=== PATIENT | male | born 1950 | race Caucasian/White ===

== ENCOUNTER 2022-07-21 11:18 | Emergency (ER) | payer BC, MEDICAID ==
[~2022-07-21] VITALS: Ht 170.2 cm; Wt 45.4 kg
[~2022-07-21 11:18] MED LIST: LORAZAPAM
[2022-07-21 11:36] VITALS: BP 137/78
--- NOTE | 2022-07-21 11:46 | NUR ---
PATIENT AMBULATED TO BED 6.
--- NOTE | 2022-07-21 12:15 | NUR ---
Patient being evaluated by physician at bedside.
[2022-07-21] MEDS ORDERED: FAMOTIDINE 20 MG/2 ML VIAL IVP ONE (12:25)
[2022-07-21] MEDS ORDERED: NACL 0.9% 1,000 ML IV SCH (12:25)
[2022-07-21] MEDS ORDERED: ONDANSETRON 4 MG/2 ML VIAL IVP ONE (12:25)
[2022-07-21] MEDS ORDERED: ALUMINUM HYD/MAG/SIMETHICONE 30 ML UDC PO ONE (12:25)
[2022-07-21 12:59] LABS: BASOPHILS % (AUTO) 0.4 % (0.0-2.0); HEMATOCRIT 38.6 % (36-52); HEMOGLOBIN 13.1 g/dL (12.0-18.0); LYMPHOCYTES # (AUTO) 0.9 K/uL (2.0-11.5); LYMPHOCYTES % (AUTO) 10.9 % (20.5-51.1); MEAN CORPUSCULAR HEMOGLOBIN 32 pg (27-31); MEAN CORPUSCULAR HGB CONC 34 g/dL (33-37); MEAN CORPUSCULAR VOLUME 94.7 fL (80-94); MONOCYTES # (AUTO) 0.3 K/uL (0.8-1.0); MONOCYTES % (AUTO) 3.1 % (1.7-9.3); NEUTROPHILS # (AUTO) 7.1 K/uL (1.8-7.7); NEUTROPHILS % (AUTO) 85.6 % (42.2-75.2); PLATELET COUNT (AUTO) 320 K/uL (140-450); RED BLOOD CELL COUNT(AUTO) 4.07 MIL/uL (4.20-6.10); RED CELL DISTRIBUTION WIDTH 13.6 % (11.6-13.7); WHITE BLOOD COUNT (AUTO) 8.3 K/uL (4.8-10.8)
[2022-07-21 13:12] LABS: ALBUMIN 4.4 g/dL (3.4-5.0); ANION GAP 13.5 (8-16); ASPARTATE AMINOTRANSFERASE 21 U/L (15-37); CHLORIDE 98 mmol/L (98-107); CREATININE 1.1 mg/dL (0.6-1.3); GLUCOSE 111 mg/dL (74-106); LIPASE 78 U/L (73-393); POTASSIUM 4.5 mmol/L (3.5-5.1); SODIUM SERUM 135 mmol/L (136-145); TOTAL BILIRUBIN 0.5 mg/dL (0.0-1.0); UREA NITROGEN, BLOOD 25 mg/dL (7-18)
[2022-07-21 13:48] LABS: APPEARANCE,URINE CLEAR (CLEAR); BILIRUBIN,URINE NEGATIVE (NEGATIVE); BLOOD, URINE TRACE-I (NEGATIVE); COLOR,URINE YELLOW (YELLOW); LEUKOCYTE ESTERASE ,URINE NEGATIVE (NEGATIVE); NITRITE, URINE NEGATIVE (NEGATIVE); UGLUCOSE NEGATIVE (NEGATIVE)
[2022-07-21 15:46] VITALS: BP 132/80
[2022-07-21] MEDS ORDERED: OMEP40EC23 PO (15:48)
[2022-07-21] MEDS ORDERED: ALUM355S59 PO (15:48)
[2022-07-21] MEDS ORDERED: ONDA-188 SL (15:48)
[2022-07-21] MEDS ORDERED: ACET-6951 PO (17:33)
== END 2022-07-21 16:22 | disposition home or self-care (01) ==
LOC: MED 11:18
DX: R10.9 Unspecified abdominal pain (principal)
CPT/HCPCS: 36415; 74177; 80053; 81003; 83690; 85025; 96374; 96375; 99285; J2405; J3490; Q9967

== ENCOUNTER 2023-01-23 09:40 | Emergency (ER) | payer BC, OTHER ==
[~2023-01-23] VITALS: Ht 170.2 cm; Wt 40.8 kg
[~2023-01-23 09:40] MED LIST changes: +ACET-6951 PO; +ALUM355S59 PO; +OMEP40EC23 PO; +ONDA-188 SL
[2023-01-23 09:47] VITALS: BP 149/84; PULSE 84; RESP 18; TEMP 97; O2SAT 100
[2023-01-23] MEDS ORDERED: ALUMINUM HYD/MAG/SIMETHICONE 30 ML UDC PO ONE (10:30)
[2023-01-23] MEDS ORDERED: ONDANSETRON 4 MG ODT PO ONE (10:30)
[2023-01-23] MEDS ORDERED: FAMOTIDINE 20 MG TAB PO ONE (10:30)
--- NOTE | 2023-01-23 10:40 | NUR ---
Blood for labwork drawn from [facility]. Patient tolerated WELL.
--- NOTE | 2023-01-23 10:44 | NUR ---
72 Y/O MALE BIB SELF, PATIENT PRESENTS TO ED WITH ABDOMINAL PAIN, NAUSEA, LOSS OF APPETITE, BLOATING AND DIARRHEA. PT STATES HE CURRENTLY FEELS CONSTIPATED NOW. STATES HE HAD AN EDG DONE 12/26/22 AND HAS F/U WITH GI SPECIALIST TOMORROW. DENIES N/V/D; SKIN IS PINK/WARM/DRY; AAOX4 WITH EVEN AND STEADY GAIT; LUNGS CLEAR BL; HR EVEN AND REGULAR; PT DENIES ANY FEVER, CP, SOB, OR COUGH AT THIS TIME; PATIENT STATES PAIN OF 8/10 AT THIS TIME; VSS; PATIENT POSITIONED FOR COMFORT; HOB ELEVATED; BEDRAILS UP X2; BED DOWN. ER MD MADE AWARE OF PT STATUS. CALL LIGHT WITHIN REACH. PMH: HTN NKA MED: OMEPRAZOLE, METOCLOPRAMIDE (NO RELIEF)
[2023-01-23 10:47] VITALS: O2SAT 100
[2023-01-23 10:48] LABS: BASOPHILS % (AUTO) 0.8 % (0.0-2.0); EOSINOPHILS # (AUTO) 0.2 K/uL (0-0.4); EOSINOPHILS % (AUTO) 3.5 % (0.0-4.0); HEMATOCRIT 32.5 % (36-52); LYMPHOCYTES # (AUTO) 1.3 K/uL (2.0-11.5); LYMPHOCYTES % (AUTO) 26.7 % (20.5-51.1); MEAN CORPUSCULAR HEMOGLOBIN 32 pg (27-31); MEAN CORPUSCULAR HGB CONC 34 g/dL (33-37); MEAN CORPUSCULAR VOLUME 93.8 fL (80-94); MONOCYTES # (AUTO) 0.5 K/uL (0.8-1.0); MONOCYTES % (AUTO) 11.1 % (1.7-9.3); NEUTROPHILS # (AUTO) 2.8 K/uL (1.8-7.7); NEUTROPHILS % (AUTO) 57.9 % (42.2-75.2); PLATELET COUNT (AUTO) 301 K/uL (140-450); RED BLOOD CELL COUNT(AUTO) 3.47 MIL/uL (4.20-6.10); RED CELL DISTRIBUTION WIDTH 13.8 % (11.6-13.7); WHITE BLOOD COUNT (AUTO) 4.9 K/uL (4.8-10.8)
--- NOTE | 2023-01-23 10:49 | NUR ---
PT AMBULATED TO BATHROOM AT THIS TIME
[2023-01-23 11:16] LABS: ALBUMIN 3.6 g/dL (3.4-5.0); ANION GAP 10.6 (8-16); ASPARTATE AMINOTRANSFERASE 27 U/L (15-37); CARBON DIOXIDE 28.3 mmol/L (21-32); CHLORIDE 104 mmol/L (98-107); CREATININE 0.7 mg/dL (0.6-1.3); GLUCOSE 101 mg/dL (74-106); LIPASE 56 U/L (73-393); POTASSIUM 3.9 mmol/L (3.5-5.1); SODIUM SERUM 139 mmol/L (136-145); TOTAL BILIRUBIN 0.6 mg/dL (0.0-1.0); UREA NITROGEN, BLOOD 9 mg/dL (7-18)
[2023-01-23] MEDS ORDERED: ACET-8905 PO (11:39)
[2023-01-23] MEDS ORDERED: MAG-27 PO (11:39)
--- NOTE | 2023-01-23 11:47 | NUR ---
Patient discharged with v/s stable. Written and verbal after care instructions FOR SMOKING TOBACCO, GASTRITIS AND ABD PAIN given and explained. Patient alert, oriented and verbalized understanding of instructions. Ambulatory with steady gait. All questions addressed prior to discharge. ID band removed. Patient advised to follow up with PMD. Rx of HYDROCODONE AND MYLANTA given. Opportunity to ask questions provided and answered. COPY OF LABS PROVIDED
== END 2023-01-23 11:47 | disposition home or self-care (01) ==
LOC: MED 09:40
DX: K31.9 Disease of stomach and duodenum, unspecified (principal); K31.A0 Gastric intestinal metaplasia, unspecified; R10.13 Epigastric pain; I10 Essential (primary) hypertension; F17.210 Nicotine dependence, cigarettes, uncomplicated; Z79.899 Other long term (current) drug therapy
CPT/HCPCS: 36415; 80053; 83690; 85025; 99284; Q0162

== ENCOUNTER 2023-12-20 14:12 | Observation (INO) | payer BC, OTHER ==
[2023-12-20] VITALS (8 sets, daily range): BP systolic 140–159; BP diastolic 77–82; PULSE 67–95; RESP 14–18; TEMP 97.1–98.3; O2SAT 96–98
[~2023-12-20] VITALS: Ht 167.6 cm; Wt 45.4 kg
[~2023-12-20 14:12] MED LIST changes: +ACET-8905 PO; +MAG-27 PO
[2023-12-20 15:34] LABS: BASOPHILS % (AUTO) 0.3 % (0.0-2.0); EOSINOPHILS % (AUTO) 0.7 % (0.0-4.0); HEMATOCRIT 33.7 % (36-52); HEMOGLOBIN 11.2 g/dL (12.0-18.0); LYMPHOCYTES # (AUTO) 1.1 K/uL (2.0-11.5); LYMPHOCYTES % (AUTO) 19.1 % (20.5-51.1); MEAN CORPUSCULAR HEMOGLOBIN 31 pg (27-31); MEAN CORPUSCULAR HGB CONC 33 g/dL (33-37); MEAN CORPUSCULAR VOLUME 92.3 fL (80-94); MONOCYTES # (AUTO) 0.7 K/uL (0.8-1.0); MONOCYTES % (AUTO) 11.7 % (1.7-9.3); NEUTROPHILS # (AUTO) 3.9 K/uL (1.8-7.7); NEUTROPHILS % (AUTO) 68.2 % (42.2-75.2); PLATELET COUNT (AUTO) 334 K/uL (140-450); RED BLOOD CELL COUNT(AUTO) 3.65 MIL/uL (4.20-6.10); RED CELL DISTRIBUTION WIDTH 14.7 % (11.6-13.7); WHITE BLOOD COUNT (AUTO) 5.8 K/uL (4.8-10.8)
[2023-12-20 15:45] LABS: ANION GAP 11.2 (8-16); CALCIUM 9.7 mg/dL (8.5-10.1); CARBON DIOXIDE 28.8 mmol/L (21-32); CHLORIDE 100 mmol/L (98-107); CREATININE 0.8 mg/dL (0.6-1.3); GLUCOSE 121 mg/dL (74-106); SODIUM SERUM 136 mmol/L (136-145); UREA NITROGEN, BLOOD 15 mg/dL (7-18)
[2023-12-20 16:08] LABS: INR 1.05 (0.8-1.2); PARTIAL THROMBOPLASTIN TIME 28.9 secs (22-35.6)
[2023-12-20] MEDS ORDERED: MORPHINE SULFATE 4 MG/ML SYR IVP PRN (20:05)
[2023-12-20] MEDS ORDERED: KCL 20 MEQ IN 100 mL PREMIX 200 ML IV PRN (20:05)
[2023-12-20] MEDS ORDERED: ONDANSETRON 4 MG/2 ML VIAL IVP PRN (20:05)
[2023-12-20] MEDS ORDERED: POTASSIUM CHLORIDE 10 MEQ TABER PO PRN (20:05)
[2023-12-20] MEDS ORDERED: HYDROcodone/APAP 5/325 MG 1 TAB TAB PO PRN (20:05)
[2023-12-20] MEDS ORDERED: ACETAMINOPHEN 325 MG TAB PO PRN (20:05)
[2023-12-20] MEDS ORDERED: MIRT7.5T14 PO (21:00)
[2023-12-20] MEDS ORDERED: CIPR500T4 PO (21:00)
[2023-12-20] MEDS ORDERED: TAMS0.4C96 PO (21:00)
[2023-12-20] MEDS: ATORVASTATIN 20 MG TAB PO SCH (21:07)
[2023-12-20] MEDS: ZOLPIDEM 5 MG TAB PO PRN (21:08)
[2023-12-20] MEDS: ALUMINUM HYD/MAG/SIMETHICONE 30 ML UDC PO ONE (21:49)
[2023-12-20] MEDS: ALBUTEROL SULFATE/IPRATROPIU 3 ML SOL IH ONE (22:25)
[2023-12-21] VITALS (7 sets, daily range): BP systolic 127–156; BP diastolic 63–87; PULSE 72–97; RESP 14–24; TEMP 97.8–98.9; O2SAT 88–99
[2023-12-21 05:43] LABS: BASOPHILS # (AUTO) 0.1 K/uL (0.00-0.22); BASOPHILS % (AUTO) 0.9 % (0.0-2.0); EOSINOPHILS # (AUTO) 0.1 K/uL (0-0.4); EOSINOPHILS % (AUTO) 2.1 % (0.0-4.0); HEMATOCRIT 34.2 % (36-52); HEMOGLOBIN 11.5 g/dL (12.0-18.0); LYMPHOCYTES # (AUTO) 2.5 K/uL (2.0-11.5); MEAN CORPUSCULAR HEMOGLOBIN 31 pg (27-31); MEAN CORPUSCULAR HGB CONC 34 g/dL (33-37); MEAN CORPUSCULAR VOLUME 93.7 fL (80-94); MONOCYTES # (AUTO) 0.7 K/uL (0.8-1.0); MONOCYTES % (AUTO) 11.2 % (1.7-9.3); NEUTROPHILS # (AUTO) 2.7 K/uL (1.8-7.7); NEUTROPHILS % (AUTO) 44.8 % (42.2-75.2); PLATELET COUNT (AUTO) 352 K/uL (140-450); RED BLOOD CELL COUNT(AUTO) 3.65 MIL/uL (4.20-6.10); RED CELL DISTRIBUTION WIDTH 14.8 % (11.6-13.7); WHITE BLOOD COUNT (AUTO) 6.1 K/uL (4.8-10.8)
[2023-12-21 05:49] LABS: ANION GAP 12.4 (8-16); CALCIUM 9.2 mg/dL (8.5-10.1); CARBON DIOXIDE 26.7 mmol/L (21-32); CHLORIDE 103 mmol/L (98-107); CREATININE 0.8 mg/dL (0.6-1.3); GLUCOSE 89 mg/dL (74-106); POTASSIUM 4.1 mmol/L (3.5-5.1); SODIUM SERUM 138 mmol/L (136-145); UREA NITROGEN, BLOOD 19 mg/dL (7-18)
[2023-12-21] MEDS: ALBUTEROL SULFATE/IPRATROPIU 3 ML SOL IH PRN (06:12)
[2023-12-21] MEDS: ASPIRIN 81 MG TAB.CHEW PO SCH (08:37)
[2023-12-21] MEDS: ALUMINUM HYD/MAG/SIMETHICONE 30 ML UDC PO PRN (19:07)
[2023-12-21] MEDS: ALBUTEROL SULFATE/IPRATROPIU 3 ML SOL IH SCH (19:38)
[2023-12-21] MEDS: MIRTAZAPINE 15 MG TAB PO SCH (20:57)
[2023-12-22] VITALS: BP 127/73; PULSE 63; RESP 19; TEMP 97.8; O2SAT 99
[2023-12-22 00:33] VITALS: O2SAT 99
[2023-12-22 02:23] VITALS: O2SAT 97
[2023-12-22 04:00] VITALS: BP 144/59; PULSE 74; RESP 18; TEMP 98.1; O2SAT 98
[2023-12-22 06:30] LABS: BASOPHILS # (AUTO) 0.1 K/uL (0.00-0.22); BASOPHILS % (AUTO) 1.6 % (0.0-2.0); EOSINOPHILS # (AUTO) 0.2 K/uL (0-0.4); HEMATOCRIT 31.8 % (36-52); HEMOGLOBIN 10.7 g/dL (12.0-18.0); LYMPHOCYTES # (AUTO) 2.1 K/uL (2.0-11.5); LYMPHOCYTES % (AUTO) 35.3 % (20.5-51.1); MEAN CORPUSCULAR HEMOGLOBIN 31 pg (27-31); MEAN CORPUSCULAR HGB CONC 34 g/dL (33-37); MEAN CORPUSCULAR VOLUME 92.2 fL (80-94); MONOCYTES # (AUTO) 0.8 K/uL (0.8-1.0); MONOCYTES % (AUTO) 13.2 % (1.7-9.3); NEUTROPHILS # (AUTO) 2.7 K/uL (1.8-7.7); NEUTROPHILS % (AUTO) 46.9 % (42.2-75.2); PLATELET COUNT (AUTO) 308 K/uL (140-450); RED BLOOD CELL COUNT(AUTO) 3.45 MIL/uL (4.20-6.10); RED CELL DISTRIBUTION WIDTH 14.9 % (11.6-13.7); WHITE BLOOD COUNT (AUTO) 5.9 K/uL (4.8-10.8)
[2023-12-22 06:33] LABS: ANION GAP 12.2 (8-16); CALCIUM 8.5 mg/dL (8.5-10.1); CARBON DIOXIDE 25.6 mmol/L (21-32); CHLORIDE 104 mmol/L (98-107); CREATININE 0.7 mg/dL (0.6-1.3); GLUCOSE 77 mg/dL (74-106); POTASSIUM 3.8 mmol/L (3.5-5.1); SODIUM SERUM 138 mmol/L (136-145); UREA NITROGEN, BLOOD 31 mg/dL (7-18)
[2023-12-22 06:58] VITALS: PULSE 109; RESP 20; O2SAT 97
[2023-12-22] MEDS ORDERED: ASPI81CT95 PO (09:54)
[2023-12-22 10:12] VITALS: BP 136/80; PULSE 80; RESP 18; TEMP 96.8
== END 2023-12-22 11:06 | disposition home or self-care (01) ==
LOC: MED 14:12 → MTU 20:08
PROVIDERS: ADMIT Internal Medicine; ATTEND Internal Medicine
DX: G45.9 Transient cerebral ischemic attack, unspecified (principal); I10 Essential (primary) hypertension; N40.0 Benign prostatic hyperplasia without lower urinary tract symptoms; Z79.899 Other long term (current) drug therapy
CPT/HCPCS: 36415; 70450; 80048; 84484; 85025; 85610; 85730; 87081; 93005; 94640; 94760; 97116; 97163; 99284; C8929; G0378